=== PATIENT | male | born 1960 | race Caucasian/White ===

== ENCOUNTER 2017-10-11 12:28 | Emergency (ER) | payer BC ==
[2017-10-11 12:36] VITALS: BP 143/74; TEMP 98; BMI 25.4
[2017-10-11] MEDS ORDERED: ALBUTEROL SO4 2.5/IPRATROPIUM 0.5 INH SOL 3 ML VIAL.NEB. NEB ONE (12:37)
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
[2017-10-11] MEDS ORDERED: predniSONE 20 MG TABLET (UD) PO ONE (15:23)
[2017-10-11 16:33] VITALS: PULSE 64
[2017-10-11] MEDS ORDERED: predniSONE 20 MG TABLET (UD) ONE (16:34)
== END 2017-10-11 16:42 | disposition home or self-care (01) ==
LOC: JER 12:28
PROC: 3E0F7GC Introduction of Other Therapeutic Substance into Respiratory Tract, Via Natural or Artificial Opening (ICD-10-PCS; principal; 2017-10-11)
DX: J44.1 Chronic obstructive pulmonary disease with (acute) exacerbation (principal); J45.909 Unspecified asthma, uncomplicated; I10 Essential (primary) hypertension; F41.9 Anxiety disorder, unspecified; F17.210 Nicotine dependence, cigarettes, uncomplicated
CPT/HCPCS: 71020-TC; 99281-25